=== PATIENT | female | born 1955 | race Caucasian/White ===

== ENCOUNTER 2017-05-26 15:15 | Inpatient (IN) ==
[2017-05-26 15:52] LABS: BE 7.1 mmoll (-3.0-3.0); BLOOD TYPE ARTERIAL; DRAW SITE R BRACHIAL; METHB 0.8 % (0.0-1.5); O2(CT) 11.1 mL/dL (15.0-23.0); SAMPLE BLOOD; SAO2 77.1 % (95.0-100.0); THB 10.5 g/dL (11.5-17.4); pH(98.6) 7.29 (7.35-7.45)
[2017-05-26 15:56] LABS: MODALITY ROOM AIR; PCO2(98.6) 74 mmHg (35-45); PO2(98.6) 38 mmHg (60-100)
[2017-05-26 15:58] LABS: ALLEN TEST NO
[2017-05-26 16:00] LABS: MANUAL DIFF NEEDED? NO
[2017-05-26 16:05] LABS: BASO% 0.1 % (0.0-0.8); EOS# 0.03 X1000 (0.0-0.7); EOS% 0.4 % (0.0-10.0); HEMATOCRIT 33.3 % (37.0-47.0); HEMOGLOBIN 9.9 g/dL (12.0-16.0); IMM GRAN# 0.04 X1000 (0.0-0.04); IMM GRAN% 0.6 % (0.0-0.5); LYMPH# 1.01 X1000 (1.2-3.4); MCH 28.4 PG (27-31); MCHC 29.7 g/dL (33-37); MCV 95.4 FL (81-99); MONO# 0.35 X1000 (0.11-0.59); MONO% 4.9 % (1.7-9.3); MPV 8.8 FL (7.4-10.4); PLT 234 X1000 (130-400); RBC 3.49 XMIL (4.2-5.4)
[2017-05-26 16:35] LABS: ACETAMINOPHEN < 1.2 ug/mL (10-30); AGAP 6; ALBUMIN 4.1 g/dL (3.5-5.0); ALKALINE PHOSPHATASE 107 U/L (32-104); BUN 15 mg/dL (8-22); CALCIUM 8.5 mg/dL (8.8-10.2); CHLORIDE 100 mmol/L (98-107); COSMO 277; GOT 18 U/L (10-30); GPT 18 U/L (10-36); POTASSIUM 4.2 mmol/L (3.5-5.1); SODIUM 138 mmol/L (136-145); TCO2 32 mmol/L (25-35); TOTAL PROTEIN 7.1 g/dL (6.3-8.3)
[2017-05-26] MEDS ORDERED: DUONEB (A & A) INH PRN (17:16)
[2017-05-26] MEDS ORDERED: ZOFRAN IV PRN (17:16)
[2017-05-26] MEDS: SODIUM CHLORIDE 0.9% INJ SCH (18:34)
[2017-05-26] MEDS: NS 1,000 ML IV SCH (18:34)
[2017-05-26] MEDS: PROTONIX IV SCH (18:34)
[2017-05-26] MEDS: CLINDAMYCIN 600 MG/NS 600 MG/50 ML IVPB IV SCH (18:35)
[2017-05-26] MEDS: DUONEB (A & A) INH SCH ×2 (19:03→23:00)
--- NOTE | 2017-05-26 20:00 | Diag Imaging Result Doc PS360 ---
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 Heart size is slightly enlarged. There is pulmonary vascular congestion. No infiltrates or edema. No pneumothorax or pleural effusion. IMPRESSION: Mild cardiomegaly and pulmonary vascular congestion. Electronically signed by Joss Adams 05/26/2017 7:57 PM
[2017-05-26 20:24] LABS: BILIRUBIN URINE NEGATIVE (NEGATIVE); BLOOD URINE 1+ (NEGATIVE); CLARITY VERY CLOUDY (CLEAR); COLOR YELLOW; GLUCOSE URINE NEGATIVE (NEGATIVE); LEUKOCYTES URINE TRACE (NEGATIVE); NITRITE URINE POSITIVE (NEGATIVE); PROTEIN URINE 2+(100 mg/dL) mg/dL (NEGATIVE); SP GRAVITY URINE 1.025; UROBILINOGEN URINE 1+(1 mg/dL)
[2017-05-26 20:26] LABS: UR AMPHETAMINES QUAL NONE DETECTED (NONE DETECT); UR BARBITUATES QUAL NONE DETECTED (NONE DETECT); UR BENZODIAZEPIN QUAL PRESUMPTIVE POSITIVE (NONE DETECT); UR CANNABINOIDS QUAL NONE DETECTED (NONE DETECT); UR COCAINE QUAL NONE DETECTED (NONE DETECT); UR MDMA QUAL NONE DETECTED (NONE DETECT); UR METHADONE QUAL NONE DETECTED (NONE DETECT); UR METHAMPHETAMINE QUAL NONE DETECTED (NONE DETECT); UR OPIATES QUAL PRESUMPTIVE POSITIVE (NONE DETECT); UR OXYCODONE QUAL NONE DETECTED (NONE DETECT); UR PCP QUAL NONE DETECTED (NONE DETECT); UR TCA QUAL NONE DETECTED (NONE DETECT)
[2017-05-26 20:31] LABS: URINE CULTURE PL NEEDED? YES; URINE EPITHELIAL CELLS >10 /HPF (<10); URINE RBC <10 /HPF (<10)
[2017-05-26 20:32] LABS: URINE CAST GRANULAR PRESENT /LPF
[2017-05-26 20:33] LABS: URINE CRYSTAL NONE SEEN /HPF; URINE SOURCE CLEAN CATCH
[2017-05-26] MEDS: ROCEPHIN 1 GM in NS 50 ML IV SCH (21:27)
[2017-05-26] MEDS: HUMALOG DOSE (PARKWAY) SUBQ SCH (23:58)
[2017-05-27] MEDS: CLINDAMYCIN 600 MG/NS 600 MG/50 ML IVPB IV SCH ×3 (01:35→18:05)
[2017-05-27] MEDS: DUONEB (A & A) INH SCH ×5 (02:40→19:30)
[2017-05-27 05:34] LABS: BE 8.7 mmoll (-3.0-3.0); BLOOD TYPE ARTERIAL; DRAW SITE L RADIAL; METHB 1.2 % (0.0-1.5); O2(CT) 12.7 mL/dL (15.0-23.0); PO2(98.6) 98 mmHg (60-100); SAMPLE BLOOD; SAO2 98.4 % (95.0-100.0); SRATE 20 BPM; THB 9.3 g/dL (11.5-17.4)
[2017-05-27 05:37] LABS: ALLEN TEST YES; MODALITY BI PAP; PCO2(98.6) 75 mmHg (35-45)
[2017-05-27] MEDS: NS 1,000 ML IV SCH ×2 (06:01→19:36)
[2017-05-27] MEDS: PROTONIX IV SCH ×2 (06:01→18:05)
[2017-05-27] MEDS: HUMALOG DOSE (PARKWAY) SUBQ SCH ×3 (06:02→18:06)
[2017-05-27 06:17] LABS: AGAP 4; ALBUMIN 3.6 g/dL (3.5-5.0); ALKALINE PHOSPHATASE 95 U/L (32-104); BUN 15 mg/dL (8-22); CALCIUM 8.2 mg/dL (8.8-10.2); CHLORIDE 104 mmol/L (98-107); COSMO 282; GOT 17 U/L (10-30); GPT 18 U/L (10-36); MAGNESIUM 2.1 mg/dL (1.5-2.7); POTASSIUM 3.9 mmol/L (3.5-5.1); SODIUM 141 mmol/L (136-145); TCO2 33 mmol/L (25-35); TOTAL PROTEIN 6.3 g/dL (6.3-8.3)
[2017-05-27 06:29] LABS: FREE T4 0.77 ng/dL (0.93-1.70)
[2017-05-27 06:44] LABS: HEMATOCRIT 31.1 % (37.0-47.0); MCH 28.3 PG (27-31); MCHC 28.9 g/dL (33-37); MCV 97.8 FL (81-99); MPV 9.5 FL (7.4-10.4); RBC 3.18 XMIL (4.2-5.4)
[2017-05-27] MEDS ORDERED: LASIX IV ONE (06:58)
--- NOTE | 2017-05-27 08:03 | Diag Imaging Result Doc PS360 ---
EXAM: CHEST-2 VIEWS INDICATION: hypoxia TECHNIQUE: 2 views COMPARISON: 05/26/2017 FINDINGS: Mild pulmonary venous congestion appears to have marginally improved. No new consolidations are appreciated. Cardiac silhouette is stable. IMPRESSION: Marginal improvement of the mild pulmonary venous congestion seen previously. Electronically signed by Sebastian Wisdom 05/27/2017 8:01 AM
[2017-05-27] MEDS: LOVENOX SUBQ SCH (08:14)
[2017-05-27] MEDS: TYLENOL PO PRN (16:12)
[2017-05-27] MEDS: SODIUM CHLORIDE 0.9% INJ SCH (18:05)
[2017-05-27] MEDS: ROCEPHIN 1 GM in NS 50 ML IV SCH (19:35)
[2017-05-28] MEDS: TYLENOL PO PRN (00:34)
[2017-05-28] MEDS: HUMALOG DOSE (PARKWAY) SUBQ SCH ×2 (00:35→07:17)
[2017-05-28] MEDS: CLINDAMYCIN 600 MG/NS 600 MG/50 ML IVPB IV SCH ×2 (02:58→11:31)
[2017-05-28] MEDS: DUONEB (A & A) INH SCH ×2 (03:30→07:34)
[2017-05-28] MEDS: SODIUM CHLORIDE 0.9% INJ SCH (09:45)
[2017-05-28] MEDS: NS 1,000 ML IV SCH (09:45)
[2017-05-28] MEDS: PROTONIX IV SCH (09:45)
[2017-05-28] MEDS: LOVENOX SUBQ SCH (09:46)
[2017-05-28] MEDS ORDERED: ULTRAM PO PRN (10:03)
[2017-05-28 11:29] VITALS: BP 143/71
== END 2017-05-28 11:20 | disposition home or self-care (01) ==
LOC: P.ED 15:15 → SUATTDRO 15:16 → P.ICU 16:36
PROVIDERS: ATTEND Internal Medicine

== ENCOUNTER 2019-12-28 05:09 | Observation (INO) ==
[2019-12-28] MEDS ORDERED: REGLAN ONE (05:37)
[2019-12-28] MEDS ORDERED: KEFZOL 1 GM/D5W 2 GM/100 ML IVPB ONE (05:37)
[2019-12-28] MEDS ORDERED: PEPCID ONE (05:37)
[2019-12-28] MEDS ORDERED: 1/2 NS 500 ML ONE (05:37)
[2019-12-28 05:58] LABS: HEMATOCRIT 35.9 % (37.0-47.0); HEMOGLOBIN 11.2 g/dL (12.0-16.0); MCH 28.3 PG (27-31); MCHC 31.2 g/dL (33-37); MCV 90.7 FL (81-99); MPV 9.5 FL (7.4-10.4); RBC 3.96 XMIL (4.2-5.4); RDW 15.2 % (11.5-14.5); WBC 5.9 X1000 (4.8-10.8)
[2019-12-28 06:20] LABS: AGAP 14; BUN 11 mg/dL (8-22); CALCIUM 9.4 mg/dL (8.8-10.2); CHLORIDE 99 mmol/L (98-107); COSMO 270; CREATININE 0.8 mg/dL (0.5-0.9); ESTIMATED GFR > 60; GLUCOSE 103 mg/dL (70-104); SODIUM 135 mmol/L (136-145); TCO2 22 mmol/L (25-35)
[2019-12-28] MEDS ORDERED: QUELICIN (DOSE) ONE (06:38)
[2019-12-28] MEDS ORDERED: NORCURON ONE (06:38)
[2019-12-28] MEDS ORDERED: STERILE WATER INJ. ONE (06:38)
[2019-12-28] MEDS ORDERED: XYLOCAINE-MPF 2% ONE (06:38)
[2019-12-28] MEDS ORDERED: MARCAINE 0.25% PF/EPI 1:200,000 ONE (06:40)
[2019-12-28] MEDS ORDERED: LR 1,000 ML ONE (06:40)
[2019-12-28] MEDS ORDERED: DIPRIVAN 1% ONE (06:40)
[2019-12-28] MEDS ORDERED: AMIDATE ONE (06:53)
[2019-12-28] MEDS ORDERED: FENTANYL ONE (07:34)
[2019-12-28 07:53] LABS: URINE SOURCE CATH
[2019-12-28 07:55] LABS: BILIRUBIN URINE NEGATIVE (NEGATIVE); BLOOD URINE NEGATIVE (NEGATIVE); COLOR YELLOW; GLUCOSE URINE NEGATIVE (NEGATIVE); KETONE URINE NEGATIVE (NEGATIVE); LEUKOCYTES URINE NEGATIVE (NEGATIVE); NITRITE URINE NEGATIVE (NEGATIVE); PROTEIN URINE NEGATIVE (NEGATIVE); SP GRAVITY URINE 1.016; TURBIDITY URINE CLEAR (CLEAR); UROBILINOGEN URINE NORMAL (NORMAL)
[2019-12-28 07:57] LABS: UR EPITHELIAL CELLS <10 /HPF (<10); URINE BACTERIA NEGATIVE /HPF; URINE RBC <10 /HPF (<10); URINE WBC <10 /HPF (<10)
[2019-12-28] MEDS ORDERED: OFIRMEV 1000 MG/ISOTONIC SOLN 1,000 MG/100 ML BOTTLE ONE (08:09)
[2019-12-28] MEDS ORDERED: NEO-SYNEPHRINE ONE (08:47)
[2019-12-28] MEDS ORDERED: ZOFRAN ONE (08:56)
[2019-12-28] MEDS ORDERED: DECADRON ONE (08:56)
[2019-12-28] MEDS ORDERED: MANNITOL ONE (09:09)
[2019-12-28] MEDS ORDERED: ROBINUL ONE (09:58)
[2019-12-28] MEDS ORDERED: NEOSTIGMINE ONE (10:00)
[2019-12-28] MEDS ORDERED: SODIUM CHLORIDE 0.9% INJ PRN (11:00)
[2019-12-28] MEDS ORDERED: OXY IR PO PRN (11:00)
[2019-12-28] MEDS ORDERED: MORPHINE IV PRN (11:00)
[2019-12-28] MEDS ORDERED: BENADRYL LIQUID PO PRN (11:00)
[2019-12-28] MEDS ORDERED: LABETALOL IV PRN (11:00)
[2019-12-28] MEDS ORDERED: NS 1,000 ML ONE (11:05)
--- NOTE | 2019-12-28 11:52 | OPERATIVE NOTE ---
PROCEDURE DATE: 12/28/2019 SURGEON: Dr. Kohler. PREOPERATIVE DIAGNOSIS: Left renal cysts and a left lower pole renal mass. POSTOPERATIVE DIAGNOSIS: Left renal cysts and a left lower pole renal mass. PROCEDURE PERFORMED: Laparoscopic robot-assisted left partial nephrectomy with removal of the renal cysts. ANESTHESIA: General endotracheal. FINDINGS: An approximate 6 cm left lower pole renal cyst, a 3 cm left mid the kidney cyst and an approximate 3 cm left lower pole mass. INDICATION FOR PROCEDURE: This 64-year-old female was having some left-sided pain. A renal ultrasound revealed renal cysts but also question of a renal mass. Her CT scan confirmed the mass. DESCRIPTION OF PROCEDURE: After informed consent was obtained from the patient, her receiving IV antibiotics, she was taken to the main OR, and placed in the supine position. General endotracheal anesthesia was achieved. She then had a Horvath catheter placed. She was then bumped up with the left side up to about 40 degrees using gel rolls. She was then fixed to the table with her right leg bent at the knee, and the contact points were well padded. She was then rotated all the way to her right such that the left side would come up to the flank and then rotated all the way to her left to where she was almost horizontal. She was then prepped and draped in the usual sterile fashion for abdominal and left flank surgery. The Veress needle was used to achieve pneumoperitoneum to 15 cm of water. This was placed about 8 cm above the umbilicus just to the left of midline. The number 1 robot arm was placed in the midclavicular line just below the costal margin. The number 2 robot arm was placed in the left midclavicular line just below the umbilicus. The emergency medicine physician assistant port was placed just above the umbilicus in the midline. This was a 12 mm port. The 3rd robot arm port was placed just above the left anterior superior iliac spine. The ports were placed under direct vision. After the ports were placed, the patient was rotated such that her left side was up in almost a complete flank position. The robot was docked. The procedure was started by taking down the descending colon along the white line of Toldt. The large cyst was easily visualized, and the mesentery area over the cyst was incised and the colon reflected medially. The lower pole of the kidney was elevated using the 4th arm and the gonadal vein and ureter were found. The gonadal vein was dissected up to the renal vein. The psoas muscle was found by dissecting medial to the ureter but lateral to the gonadal vein, and the psoas muscle was visualized and the 4th arm was then used to lift the ureter and kidney up and the tissue between the gonadal vein and the kidney was bluntly and sharply taken down. After the kidney was able to be placed on stretch, the renal vein was dissected above and below and the PK instrument was passed under the vein and a vessel loop was placed. The renal artery was visualized just superior to the renal vein, and it was likewise bluntly and sharply dissected free and encircled with a vessel loop. The cyst was dissected free from the perirenal tissue as well as the lower pole kidney. The tissue overlying the lower pole was very adherent and had to be sharply dissected free. The lower pole was freed such that it could be elevated. The [employer] Alpha 10 ProSound ultrasound machine with the drop-in ultrasound probe was used to image the mass that was immediately adjacent to the large left lower pole cyst. The ultrasound measurements revealed the mass to be 2.5 cm in diameter. The proposed incision line was marked with the electrocautery that included the medial wall of the cyst. The bulldog clamps were placed, first on the artery and then on the vein. Prior to placing the bulldog clamps on the renal vessels, the large cyst was entered, all the cyst fluid removed, and the wall of the cyst was completely removed and sent to Pathology in its own container. After the large cyst was removed, the bulldog clamps were placed first on the artery and then on the vein. The renal mass was excised cutting along the previously noted line of incision. The mass was moved to the side. There appeared to be a normal rim of tissue all around the mass. After the mass was removed, 3-0 V-Loc suture on an RB 1 needle was passed through the renal capsule at the side of the renal cyst and then brought through the defect at the medial side of the renal cyst. A running suture was placed across the base of the excised mass, and at the medial end, it was brought through the capsule of the kidney. Another Hem-O-George clip was placed and tension was placed to close vessels and the collecting system. A second 3-0 V-Loc suture was again passed through the outer wall of the cyst. It was then again brought through the medial wall of the cyst into the defect of the mass, and the initial suture line was oversewn with a second suture line. It was likewise brought out through the medial side and other Hem-O-George clip was placed and tension was placed on this. The capsular edges were brought together with 0 V-Loc suture that was backed up with a Hem-O-George clip. A total of 5 of these V-Loc sutures were placed. There was still one area that did not look completely opposed and an 0 Vicryl suture with a Hem-O-George clip on the end was passed through the capsule of the kidney on both sides and a second Hem-O-George clip placed to keep tension on the capsule sutures. The renal vein was unclamped and then the renal artery. The bulldog clamps were removed. There appeared to be a capsular bleeder on the medial end of the incision. Another 0 Vicryl suture was placed using Hem-O- George clips, and this appeared to stop the bleeding area. Evicel was then placed in the wound. The mid kidney cyst wall was incised and the fluid removed. A portion of the cyst wall was sent to Pathology in a container of its own. More Evicel was then placed and Surgicel SNoW was placed over the defect. The perirenal fat was placed back over the kidney and held in place with a running suture of 0 Vicryl. The tumor was placed in an Endo Catch bag. A drain was placed through the fourth arm trocar and after the drain was placed, the trocar was removed. The drain was sutured to the skin with 0 silk. The kidney area was then inspected and there were no bleeding areas seen. The pneumoperitoneum was resolved. The robot trocars were removed. The patient was returned to the supine position. The emergency medicine physician assistant port incision was incised approximately 1 cm more and the specimen was delivered and sent to Pathology in its own container. The abdominal rectus fascia at the emergency medicine physician assistant port was reapproximated with a [id number]-wl-[id number] suture of 2-0 Vicryl on a UR-6 needle. The camera port fascia was reapproximated with a simple suture of 2-0 Vicryl using the UR-6 needle. The skin was reapproximated with clips. Island dressings were placed. She tolerated the procedure well. The estimated blood loss was 200 mL. She was taken to the recovery room in good condition. cc: Rashaad Kohler MD MTDD
[2019-12-28] MEDS ORDERED: OFIRMEV 1000 MG/ISOTONIC SOLN 1,000 MG/100 ML BOTTLE IV PRN (14:20)
[2019-12-28] MEDS: NS 1,000 ML IV SCH ×2 (15:48→21:58)
[2019-12-28] MEDS: OXY IR PO PRN ×2 (15:48→21:54)
[2019-12-28] MEDS: KEFZOL 2 GM/D5W 2 GM/50 ML IVPB IV SCH ×2 (15:49→22:02)
[2019-12-28] MEDS: PHENERGAN IV PRN ×2 (17:04→21:55)
[2019-12-28] MEDS ORDERED: XANAX PO SCH (21:00)
[2019-12-28] MEDS ORDERED: CRESTOR PO SCH (21:00)
[2019-12-28] MEDS: COREG PO SCH (21:55)
[2019-12-28] MEDS: PEPCID PO SCH (21:55)
[2019-12-28] MEDS: COLACE PO SCH (21:58)
[2019-12-28] MEDS: PERIDEX MT SCH (21:58)
[2019-12-29] MEDS: COREG PO SCH ×2 (00:37→09:29)
[2019-12-29 04:41] LABS: CREATININE BODY FLUID 0.9 mg/dL
[2019-12-29] MEDS: KEFZOL 2 GM/D5W 2 GM/50 ML IVPB IV SCH ×2 (05:56→06:21)
[2019-12-29] MEDS: PHENERGAN IV PRN (05:57)
[2019-12-29] MEDS: OXY IR PO PRN (05:57)
[2019-12-29 06:01] LABS: HEMATOCRIT 32.2 % (37.0-47.0); HEMOGLOBIN 9.9 g/dL (12.0-16.0); MCHC 30.7 g/dL (33-37); MPV 9.1 FL (7.4-10.4); RBC 3.54 XMIL (4.2-5.4); RDW 15.1 % (11.5-14.5); WBC 9.25 X1000 (4.8-10.8)
[2019-12-29 06:16] LABS: AGAP 7; BUN 13 mg/dL (8-22); CALCIUM 8.5 mg/dL (8.8-10.2); CHLORIDE 103 mmol/L (98-107); COSMO 273; CREATININE 0.9 mg/dL (0.5-0.9); ESTIMATED GFR > 60; GLUCOSE 112 mg/dL (70-104); SODIUM 136 mmol/L (136-145); TCO2 26 mmol/L (25-35)
[2019-12-29] MEDS ORDERED: ALDACTONE PO SCH (09:00)
[2019-12-29] MEDS ORDERED: PROZAC PO SCH (09:00)
[2019-12-29] MEDS ORDERED: LASIX PO SCH (09:00)
[2019-12-29] MEDS ORDERED: VITAMIN D PO SCH (09:00)
[2019-12-29] MEDS ORDERED: FLAGYL PO SCH (09:00)
[2019-12-29] MEDS ORDERED: COZAAR PO SCH (09:00)
[2019-12-29] MEDS ORDERED: PRILOSEC PO SCH (09:00)
[2019-12-29] MEDS ORDERED: KLOR-CON PO SCH (09:00)
[2019-12-29] MEDS: PEPCID PO SCH (09:29)
[2019-12-29] MEDS: PERIDEX MT SCH (09:29)
[2019-12-29] MEDS: COLACE PO SCH (09:30)
[2019-12-29 13:04] VITALS: BP 166/73
== END 2019-12-29 13:42 | disposition home or self-care (01) ==
LOC: 4N 05:09 → OR 05:09
PROVIDERS: ADMIT Urology; ATTEND Urology